=== PATIENT | male | born 1960 | race Caucasian/White ===

== ENCOUNTER → 2016-12-25 | Outpatient (CLI) | payer MEDICAID | LOC: FIMAGING 13:26 | PROVIDERS: ATTEND Internal Medicine | DX: M25.572 Pain in left ankle and joints of left foot (principal) ==

== ENCOUNTER 2017-03-16 15:02 | Emergency (ER) | payer MEDICAID ==
[2017-03-16 15:18] VITALS: BP 138/89; PULSE 64; RESP 17; TEMP 97.7; O2SAT 96
--- NOTE | 2017-03-16 15:36 | EDPHY ---
H & P Time Seen by Provider: 03/16/17 15:19 HPI/ROS: CHIEF COMPLAINT: "I'm sad" HISTORY OF PRESENT ILLNESS: 56-year-old male drove to the emergency department complaining of feeling sad and depressed for the past few days, exacerbated by having to put his dog down today. He denies suicidal homicidal ideation. Denies alcohol or drug use. No complaints of physical pain. PHYSICAL EXAM (Prior to examination, patient consented to physical exam, hands were washed and my usual and customary physical exam procedures followed) 1) GENERAL: Well-developed, well-nourished, alert and oriented. appears nontoxic, he is tearful. 2) HEAD: Normocephalic 3) HEENT: sclera anicteric 4) LUNGS: Breathing comfortably. Smoking Status: Never smoked Constitutional: Initial Vital Signs Temperature (C) 36.5 C 03/16/17 15:14 Heart Rate 64 03/16/17 15:14 Respiratory Rate 17 03/16/17 15:14 Blood Pressure 138/89 H 03/16/17 15:14 O2 Sat (%) 96 03/16/17 15:14 O2 Delivery Mode Room Air Allergies/Adverse Reactions: No Known Allergies Allergy (Unverified 03/16/17 15:13) Home Medications: Medication Instructions Recorded NK [No Known Home Meds] 03/16/17 MDM/Departure - MDM ED Course/Re-evaluation: This patient denies suicidal or homicidal ideation. I believe him to have decision-making capacity. He drove himself to the ER. He does not meet criteria for an M1 hold or emergency department detain or. I have offered to have him drive himself to the [facility] 24 hour walk-in clinic on [facility] and he is agreeable with this plan. Definitely if at any point he develops thoughts of hurting self or others he needs to return to the emergency department immediately for re-evaluation - Depart Disposition: Home, Routine, Self-Care Clinical Impression: Acute depression Condition: Good Instructions: Depression (ED) Additional Instructions: Call 911 if you develop thoughts of hurting herself or others Referrals: [facility] [Clinic] - 03/16/17 4:00 pm (The 24 hour Walk in Center is at : [address], [place] [address] Go to this address)
== END 2017-03-16 15:46 | disposition home or self-care (01) ==
DX: F32.9 Major depressive disorder, single episode, unspecified (principal)

== ENCOUNTER → 2017-05-30 | Outpatient (CLI) | payer MEDICAID | LOC: FIMAGING 14:42 | PROVIDERS: ATTEND Family Medicine | DX: M25.562 Pain in left knee (principal) ==

== ENCOUNTER → 2017-08-28 | Outpatient (CLI) | payer MEDICAID | LOC: FIMAGING 12:02 | PROVIDERS: ATTEND Family Medicine | DX: S83.242A Other tear of medial meniscus, current injury, left knee, initial encounter (principal) ==